=== PATIENT | female | born 2000 | race Caucasian/White ===

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

== ENCOUNTER 2021-05-26 10:23 | Emergency (ER) | payer OTHER, SELFPAY ==
[2021-05-26 11:25] VITALS: BP 132/81; PULSE 112; RESP 20; TEMP 37.2; O2SAT 99; BMI 23.4
--- NOTE | 2021-05-26 11:59 | HMH.EDUTC ---
[facility] [place] Disposition Clinical Impression: COVID-19 Sinusitis Qualifiers: Sinusitis location: unspecified location Chronicity: acute Recurrence: non-recurrent Qualified Code(s): J01.90 - Acute sinusitis, unspecified Disposition: Home, Self-Care Condition on Discharge: Good Instructions: DI for Sinusitis, Preventing the Spread of Coronavirus Discharge Instructions Additional Instructions: Drink plenty of fluids. Take tylenol or ibuprofen for pain or fever. Take the medications as directed. Follow up with your regular doctor. GO TO THE ER FOR ANY WORSENING SYMPTOMS Prescriptions: Brompheniramine/Pseudoephed/Dm [Bromfed Dm Cough Syrup] 5 ml PO Q6HP PRN #240 ml PRN Reason: Cough Transmission Status: Received by [facility] methylPREDNISolone [Medrol] 4 mg PO DIRECTED 6 Days #21 packet Transmission Status: Received by [facility] Azithromycin [Z-Paul 250mg Tab*] 250 mg PO UD DOSE PK #6 tab Transmission Status: Received by [facility] Referrals: Israel Woo MD [Primary Care Provider] - Forms: Work/School Release Time of Disposition: 13:15 Medical Decision Making - Medical Records Medical records reviewed: No: I reviewed the patient's medical records. - Pablo Inquiry Pt receiving controlled substance: No Vital Signs: 05/26/21 11:25 05/26/21 13:15 Temperature 98.9 F 98.9 F Temperature Source Oral Pulse Rate 112 H Pulse Rate [Right Brachial] 112 H Respiratory Rate 20 20 Blood Pressure 132/81 Blood Pressure [Right Arm] 132/81 Blood Pressure Mean [Right Arm] 98 Blood Pressure Source [Right Arm] Automatic Cuff Blood Pressure Position [Right Arm] Sitting 02 Sat by Pulse Oximetry 99 Oxygen Delivery Method Room Air - Lab Data Lab results reviewed: Yes: I reviewed the patient's lab results. Lab Results 05/26/21 12:04: SARS-CoV-2 (PCR) Detected A, Influenza A Untype (PCR) Not detected, Influenza Type B (PCR) Not detected [facility] [place] HPI - General Stated complaint: Congestion Time Seen by Provider: 05/26/21 11:59 Mode of Arrival: Ambulatory Source of Information: Patient Limitations: No Limitations Description of Symptoms (Recalled from Triage Doc. by RN): PATIENT C/O CONGESTION, HEADACHE, SNEEZING, AND COUGH. DENIES ANY COVID EXPOSURE HEENT Symptoms (Recalled from RN notes): Yes Resp Symptoms (Recalled from RN notes): Yes Skin Symptoms (Recalled from RN notes): No MS Symptoms (Recalled from RN notes): No Functional Status (Recalled from RN notes): WNL - History of Present Illness Provider Complaint: She c/o sinus pressure, sinus congestion, sinus headache, bilateral ear pain for the past 2 days. She denies any known covid exposure, but she does work here in ER registration. - Related Data Previous Rx's Medication Instructions Recorded Azithromycin [Z-Paul 250mg Tab*] 250 mg PO UD DOSE PK #6 tab 05/26/21 Brompheniramine/Pseudoephed/Dm 5 ml PO Q6HP PRN #240 ml 05/26/21 [Bromfed Dm Cough Syrup] methylPREDNISolone [Medrol] 4 mg PO DIRECTED 6 Days #21 05/26/21 packet Allergies Allergy/AdvReac Type Severity Reaction Status Date / Time No Known Allergies Allergy Verified 05/26/21 11:41 - Worker's Comp Is this a Worker's Comp case?: No [facility] History - Hepatitis A Screen Drug use history?: No High risk sexual behaviors?: No History of sexually transmitted infection?: No Currently employed?: No Childcare worker?: No Do you have indoor plumbing?: Yes Do you have electricity?: Yes Attestation statement:: This patient has been screened for Hepatitis A risk factors. I have reviewed the patient's past medical history: Yes ROS Obtained: Yes All systems reviewed & no additional complaints - Constitutional Constitutional: Reports chills, Denies fever(s), Reports poor appetite, Reports malaise - Eyes Eyes: Denies eye discharge - ENT Ears, Nose, Mouth, and Throat: Reports as per HPI - Cardiovascular Cardiovascu
[2021-05-26 12:55] LABS: Influenza A, PCR Not Detected (NotDetected); Influenza B, PCR Not Detected (NotDetected)
[2021-05-26 13:15] VITALS: BP 132/81; PULSE 112; RESP 20; TEMP 37.2; O2SAT 99
[2021-05-26 13:40] LABS: Coronavirus 19, PCR Detected (NotDetected)
--- NOTE | 2021-05-26 14:07 | PC.NURSE ---
PATIENT NOTIFIED OF POSITIVE COVID RESULT AT THIS TIME
== END 2021-05-26 13:19 | disposition home or self-care (01) ==
PROVIDERS: Emergency Provider Nurse Practitioner Family; PCP Family Medicine
DX: U07.1 COVID-19 (principal); J01.90 Acute sinusitis, unspecified
CPT/HCPCS: 99202; C9803; G0463; U0003; U0005

== ENCOUNTER 2021-11-04 09:01 | Emergency (ER) | payer OTHER, SELFPAY ==
[2021-11-04 09:05] VITALS: BP 126/90; PULSE 86; RESP 18; TEMP 36.9; O2SAT 99; BMI 26.0
--- NOTE | 2021-11-04 09:31 | HMH.EDUTC ---
[facility] [place] Disposition Clinical Impression: Sinusitis Qualifiers: Sinusitis location: unspecified location Chronicity: unspecified Qualified Code(s): J32.9 - Chronic sinusitis, unspecified Disposition: Home, Self-Care Condition on Discharge: Good Instructions: Sinusitis, DI for Sinusitis Additional Instructions: *Monitor Temp, Over the counter Motrin or Tylenol as directed/as needed Tylenol every 4 hours and Motrin every 6 hours (as long as your family doctor has told you that you can take it) for fever or pain. and straight to ER if unable to lower temp less than 101.0 after medication given *Warm salt water gargles may help to soothe the throat *Throat Lozenges *Warm fluids like tea with honey may help to soothe the throat *Sleep elevated *Humidifier/Vaporizer *Take medication as prescribed Return if needed Follow up IMMEDIATELY for new or worsening symptoms or no Noticeable improvement over the next 48-72 hours. 911 for difficulty breathing or swallowing Prescriptions: methylPREDNISolone [Medrol 4mg tab] 4 mg PO DIRECTED #21 tab Transmission Status: P[facility] to [facility] Azithromycin [Z-Paul 250mg Tab] 250 mg PO DIRECTED #6 tab Transmission Status: Pending to [facility] Referrals: Theresa Arroyo PA [Primary Care Provider] - As needed Time of Disposition: 09:33 Medical Decision Making - Pablo Inquiry Pt receiving controlled substance: No Pablo was queried for this patient: No Vital Signs: 11/04/21 09:05 Temperature 98.4 F Temperature Source Oral Pulse Rate [Right Brachial] 86 Respiratory Rate 18 Blood Pressure [Right Arm] 126/90 Blood Pressure Mean [Right Arm] 102 Blood Pressure Source [Right Arm] Automatic Cuff Blood Pressure Position [Right Arm] Sitting 02 Sat by Pulse Oximetry 99 Oxygen Delivery Method Room Air [facility] [place] HPI - General Stated complaint: possible sinus infection bilateral ear pain Time Seen by Provider: 11/04/21 09:31 Mode of Arrival: Ambulatory Source of Information: Patient Limitations: No Limitations Description of Symptoms (Recalled from Triage Doc. by RN): PATIENT C/O SORE THROAT, COUGH, RUNNY NOSE, HEADACHE, CONGESTION, AND BILATERAL EAR PAIN SINCE YESTERDAY HEENT Symptoms (Recalled from RN notes): Yes Resp Symptoms (Recalled from RN notes): Yes Skin Symptoms (Recalled from RN notes): No MS Symptoms (Recalled from RN notes): No Functional Status (Recalled from RN notes): WNL - History of Present Illness Provider Complaint: Patient states that she has been having sinus issues States that she has been having sinus pressure and congestion States that yesterday she started having sore throat, headache, pain and pressure in both ears State that today she was still feeling the pressure behind her eyes so she came in States that she thinks she has a sinus infection again - Related Data Previous Rx's Medication Instructions Recorded Azithromycin [Z-Paul 250mg Tab] 250 mg PO DIRECTED #6 tab 11/04/21 methylPREDNISolone [Medrol 4mg 4 mg PO DIRECTED #21 tab 11/04/21 tab] Allergies Allergy/AdvReac Type Severity Reaction Status Date / Time No Known Allergies Allergy Verified 05/26/21 11:41 - Worker's Comp Is this a Worker's Comp case?: No [facility] History - Hepatitis A Screen Drug use history?: No High risk sexual behaviors?: No History of sexually transmitted infection?: No Currently employed?: No Childcare worker?: No Do you have indoor plumbing?: Yes Do you have electricity?: Yes Attestation statement:: This patient has been screened for Hepatitis A risk factors. I have reviewed the patient's past medical history: Yes Laterality Cases: Bilateral: Tonsillectomy - Social History Alcohol Intake: never Occupational Status: other ROS Obtained: Yes All systems reviewed & no additional complaints, Yes Systems reviewed as appropriate & no additional complaints - Constitutional Constitutional: Reports system reviewed and n
[2021-11-04 09:35] VITALS: BP 126/90; PULSE 86; RESP 18; TEMP 36.9; O2SAT 99
== END 2021-11-04 09:41 | disposition home or self-care (01) ==
PROVIDERS: Emergency Provider Nurse Practitioner; PCP Physician Assistant
DX: J32.9 Chronic sinusitis, unspecified (principal)
CPT/HCPCS: 99212; G0463

== ENCOUNTER 2022-03-01 08:00 | Emergency (ER) | payer BC, SELFPAY ==
[2022-03-01 08:19] VITALS: BP 123/74; PULSE 92; RESP 16; TEMP 36.9; O2SAT 96; BMI 25.4
--- NOTE | 2022-03-01 08:21 | HMH.EDUTC ---
[facility] [place] Clinical Impression: Viral syndrome Otitis media Qualifiers: Otitis media type: suppurative Chronicity: acute Laterality: bilateral Recurrence: non-recurrent Spontaneous tympanic membrane rupture: without spontaneous rupture Qualified Code(s): H66.003 - Acute suppurative otitis media without spontaneous rupture of ear drum, bilateral Disposition: Home, Self-Care Condition on Discharge: Good Instructions: Middle Ear Infection, DI for Viral Syndrome, Preventing the Spread of Coronavirus Discharge Instructions Additional Instructions: Drink plenty of fluids. Take tylenol or ibuprofen for pain or fever. Take the medications as directed. Follow up with your regular doctor. GO TO THE ER FOR ANY WORSENING SYMPTOMS Quarantine until you know the results of your covid-19 test. Notify your school or workplace of your results and follow their instructions regarding return to work/school. Prescriptions: Brompheniramine/Pseudoephed/Dm [Bromfed Dm Cough Syrup] 5 ml PO Q6HP PRN #240 ml PRN Reason: Cough Transmission Status: Received by [facility] methylPREDNISolone [Medrol] 4 mg PO DIRECTED 6 Days #21 packet Transmission Status: Received by [facility] Azithromycin [Z-Paul 250mg Tab*] 250 mg PO UD DOSE PK #6 tab Transmission Status: Received by [facility] Referrals: Theresa Arroyo PA [Primary Care Provider] - Forms: Work/School Release Time of Disposition: 08:32 Medical Decision Making - Medical Records Medical records reviewed: No: I reviewed the patient's medical records. - Pablo Inquiry Pt receiving controlled substance: No Vital Signs: 03/01/22 08:19 03/01/22 08:42 Temperature 98.5 F 98.5 F Temperature Source Oral Pulse Rate 92 H Pulse Rate [Left] 92 H Respiratory Rate 16 16 Blood Pressure 123/74 Blood Pressure [Right Arm] 123/74 Blood Pressure Mean [Right Arm] 90 02 Sat by Pulse Oximetry 96 - Lab Data Lab Results 03/01/22 08:31: Chlamy pneumoniae PCR Not detected, Adenovirus (PCR) Not detected, B. pertussis DNA (PCR) Not detected, Coronavirus OC43 (PCR) Not detected, Coronavirus HKU1 (PCR) Not detected, Coronavirus 229E (PCR) Not detected, SARS-CoV-2 (PCR) Not detected, Coronavirus NL63 (PCR) Not detected, Human Metapneumovir PCR Not detected, Influenza A (H1) PCR Not detected, Influ A (H1N1/09) PCR Not detected, Influenza A (H3) PCR Not detected, Influenza Type A (PCR) Not detected, Influenza Type B (PCR) Not detected, M. pneumoniae (PCR) Not detected, Parainfluenza 1 (PCR) Not detected, Parainfluenza 2 (PCR) Not detected, Parainfluenza 3 (PCR) Not detected, Parainfluenza 4 (PCR) Not detected, RSV (PCR) Not detected, Entero/Rhino (PCR) Not detected [facility] [place] - General Stated complaint: ear pain Time Seen by Provider: 03/01/22 08:26 - History of Present Illness Provider Complaint: She states that for the past 2 days she has had bilateral ear pain and pressure, sinus congestion, and a scratchy throat. She denies fever and chills, but she states that in the past she had covid-19 once and it started with the symptoms she is having now. - Related Data Home Medications Medication Instructions Recorded Confirmed sodium fluoride 1.1 %-potassium 1 applic PO ml 01/11/22 01/11/22 nitrate 5 % dental paste Previous Rx's Medication Instructions Recorded Azithromycin [Z-Paul 250mg Tab*] 250 mg PO UD DOSE PK #6 tab 03/01/22 Brompheniramine/Pseudoephed/Dm 5 ml PO Q6HP PRN #240 ml 03/01/22 [Bromfed Dm Cough Syrup] methylPREDNISolone [Medrol] 4 mg PO DIRECTED 6 Days #21 03/01/22 packet Allergies Allergy/AdvReac Type Severity Reaction Status Date / Time ethinyl estradiol Allergy Severe Vomiting Verified 03/01/22 08:27 [From Lo Loestrin Fe] ferrous fumarate Allergy Severe Vomiting Verified 03/01/22 08:27 [From Lo Loestrin Fe] norethindrone acetate Allergy Severe Vomiting Verified 03/01/22 08:27 [Fro
[2022-03-01 08:40] LABS: Adenovirus,PCR Not Detected (NotDetected); Bordetella Pertussis Not Detected (NotDetected); Chlamydophila Pneumoniae, PCR Not Detected (NotDetected); Coronavirus 19, PCR Not Detected (NotDetected); Coronavirus 229E Not Detected (NotDetected); Coronavirus NL63 Not Detected (NotDetected); Coronavirus OC43 Not Detected (NotDetected); Coronovirus HKU1,PCR Not Detected (NotDetected); Human Metapneumovirus Not Detected (NotDetected); Influenza A, PCR Not Detected (NotDetected); Influenza AH1, 2009 Not Detected (NotDetected); Influenza AH1, PCR Not Detected (NotDetected); Influenza AH3,PCR Not Detected (NotDetected); Influenza B, PCR Not Detected (NotDetected); Mycoplasma Pneumoniae, PCR Not Detected (NotDetected); Parainfluenza 1, PCR Not Detected (NotDetected); Parainfluenza 2, PCR Not Detected (NotDetected); Parainfluenza 3, PCR Not Detected (NotDetected); Parainfluenza 4, PCR Not Detected (NotDetected); Respiratory Syncytial Virus Not Detected (NotDetected); Rhinovirus/Enterovirus Not Detected (NotDetected)
[2022-03-01 08:42] VITALS: BP 123/74; PULSE 92; RESP 16; TEMP 36.9
== END 2022-03-01 08:42 | disposition home or self-care (01) ==
PROVIDERS: Emergency Provider Nurse Practitioner Family; PCP Physician Assistant
DX: H66.003 Acute suppurative otitis media without spontaneous rupture of ear drum, bilateral (principal); B34.9 Viral infection, unspecified; J02.9 Acute pharyngitis, unspecified
CPT/HCPCS: 87581; 87632; 87798; 99212; C9803; G0463; U0003; U0005

== ENCOUNTER 2022-04-24 08:02 | Emergency (ER) | payer BC, SELFPAY ==
[2022-04-24 08:10] VITALS: BP 131/94; PULSE 91; RESP 18; TEMP 37; O2SAT 98; BMI 22.1
--- NOTE | 2022-04-24 08:28 | EXP.UTC ---
Discharge Plan Disposition Patient Disposition: Home, Self-Care Condition: Good Prescriptions Prescriptions: New azithromycin [Zithromax Z-Paul] 250 mg tablet 250 mg PO DAILY 6 Days Qty: 6 0RF Rx Instructions: start on day 2 of therapy methylprednisolone [Medrol (Paul)] 4 mg tablets,dose pack 4 mg PO DAILY Qty: 21 0RF No Action [employer] 3 mg- 14.2 mg (28) tablet 1 tab PO DAILY Qty: 28 12RF sodium fluoride-pot nitrate [PreviDent 5000 Enamel Protect] 1.1-5 % paste 1 applic PO Label Comments: USE a pea-sized AMOUNT TO BRUSH DIRECTED TWICE DAILY Referrals Follow up/Referrals: Theresa Arroyo PA [Primary Care Provider] - See instructions Activity Restrictions/Add. Instructions Additional Instructions/Restrictions: *Monitor Temp, Over the counter Motrin or Tylenol as directed/as needed Tylenol every 4 hours and Motrin every 6 hours (as long as your family doctor has told you that you can take it) for fever or pain. and straight to ER if unable to lower temp less than 101.0 after medication given *Warm salt water gargles may help to soothe the throat *Throat Lozenges? *Warm fluids like tea with honey may help to soothe the throat? *Sleep elevated *Humidifier/Vaporizer Follow up IMMEDIATELY for new or worsening symptoms or no Noticeable improvement over the next 48-72 hours. 911 for difficulty breathing or swallowing You were tested for today for COVID19 your test result should be back in the next 24-48 hours, you may may check your results on the [facility] My Health Portal Make sure to take your Vitamins Vit. C Vit D and Zinc if you can take them Clinical Impressions Clinical Impression: Upper respiratory infection Stand Alone Forms Stand Alone Forms: Work/School Release Instructions Patient Instructions: Sore Throat, Sinusitis, DI for Sinusitis Discharge ED Provider: Mary Jo Plunkett [facility] [place] HPI General Stated complaint: Bodyaches, sore throat, ear pain, congestion Mode of Arrival: Ambulatory Source of Information: Patient Limitations: No Limitations Time Seen by Provider: 04/24/22 08:15 Description of Symptoms (Recalled from Triage Doc. 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 States that she hasnt had fever that she is aware of but thinks she may have had one last night Related Data Home Medications Medication Instructions Recorded Confirmed sodium fluoride 1.1 %-potassium 1 applic PO 01/11/22 03/08/22 nitrate 5 % dental paste (PreviDent 5000 Enamel Protect) Previous Rx's Medication Instructions Recorded drospirenone 3 mg-estetrol 14.2 mg 1 tab PO DAILY #28 tabs 03/08/22 (28) tablet (Nextstellis) azithromycin 250 mg tablet 250 mg PO DAILY 6 days #6 tabs 04/24/22 (Zithromax Z-Paul) methylprednisolone 4 mg tablets in 4 mg PO DAILY #21 tabs 04/24/22 a dose pack (Medrol (Paul)) Allergies Allergy/AdvReac Type Severity Reaction Status Date / Time ethinyl estradiol Allergy Severe Vomiting Verified 03/08/22 15:18 [From Lo Loestrin Fe] ferrous fumarate Allergy Severe Vomiting Verified 03/08/22 15:18 [From Lo Loestrin Fe] norethindrone acetate Allergy Severe Vomiting Verified 03/08/22 15:18 [From Lo Loestrin Fe] Worker's Comp Is this a Worker's Comp case?: No PFSH PFSH Social History (Updated 04/24/22 @ 08:28 by Chelsea Ibrahim RN) Smoking Status:
[2022-04-24 08:40] VITALS: BP 131/94; PULSE 91; RESP 18; TEMP 37; O2SAT 98
[2022-04-24 08:52] LABS: UTC Strep Screen (Rapid) Negative (Negative)
[2022-04-24 09:09] LABS: Coronavirus 19, PCR Not Detected (NotDetected); Influenza A, PCR Not Detected (NotDetected); Influenza B, PCR Not Detected (NotDetected)
== END 2022-04-24 08:48 | disposition home or self-care (01) ==
PROVIDERS: Emergency Provider Nurse Practitioner; PCP Physician Assistant
DX: J06.9 Acute upper respiratory infection, unspecified (principal)
CPT/HCPCS: 87880; 99212; C9803; G0463; U0003; U0005

== ENCOUNTER 2022-05-17 08:39 | Emergency (ER) | payer BC, SELFPAY ==
[2022-05-17 08:50] VITALS: BP 119/82; PULSE 69; RESP 19; TEMP 37.1; O2SAT 99; BMI 22.1
--- NOTE | 2022-05-17 09:01 | EXP.UTC ---
Discharge Plan Disposition Patient Disposition: Home, Self-Care Condition: Good Prescriptions Prescriptions: New methylprednisolone [Medrol (Paul)] 4 mg tablets,dose pack 4 mg PO DAILY Qty: 21 0RF cefdinir 300 mg capsule 300 mg PO BID Qty: 20 0RF Referrals Follow up/Referrals: Provider,Referral, MD [Primary Care Provider] - See instructions Activity Restrictions/Add. Instructions Additional Instructions/Restrictions: *Monitor Temp, Over the counter Motrin or Tylenol as directed/as needed Tylenol every 4 hours and Motrin every 6 hours (as long as your family doctor has told you that you can take it) for fever or pain. and straight to ER if unable to lower temp less than 101.0 after medication given *Warm salt water gargles may help to soothe the throat *Throat Lozenges? *Warm fluids like tea with honey may help to soothe the throat? *Sleep elevated *Humidifier/Vaporizer Your throat swab was sent for culture. Those results are typically sent to your primary care. Be sure to follow up in 2-3 days with your family doctor/primary care physician if no improvement so they can review those result and treat if necessary. If you don?t have a primary care doctor, I recommend you get one but in the mean time, you will have to return to a walk in clinic Follow up IMMEDIATELY for new or worsening symptoms or no Noticeable improvement over the next 48-72 hours. 911 for difficulty breathing or swallowing You were tested for today for COVID19 your test result should be back in the next 24-48 hours, you may check your results on the [facility] My Health Portal Make sure to take your Vitamins Vit. C Vit D and Zinc if you can take them Clinical Impressions Clinical Impression: Upper respiratory infection Stand Alone Forms Stand Alone Forms: Work/School Release Instructions Patient Instructions: Sore Throat, DI for Ear Pain-Adult Discharge ED Provider: Mary Jo Plunkett [facility] [place] [place] HPI General Stated complaint: cough, sore throat, ear pain, congestion Time Seen by Provider: 05/17/22 09:02 History of Present Illness Provider Complaint: Patient states she started on Sunday with sore throat, sinus congestion and pressure, and pain in both ears States that it has continued to get worse so today when she was still feeling bad she came in to get checked out Related Data Previous Rx's Medication Instructions Recorded cefdinir 300 mg capsule 300 mg PO BID #20 caps 05/17/22 methylprednisolone 4 mg tablets in 4 mg PO DAILY #21 tabs 05/17/22 a dose pack (Medrol (Paul)) Allergies Allergy/AdvReac Type Severity Reaction Status Date / Time ethinyl estradiol Allergy Severe Vomiting Verified 03/08/22 15:18 [From Lo Loestrin Fe] ferrous fumarate Allergy Severe Vomiting Verified 03/08/22 15:18 [From Lo Loestrin Fe] norethindrone acetate Allergy Severe Vomiting Verified 03/08/22 15:18 [From Lo Loestrin Fe] PFSH PFS Surgical History (Updated 05/17/22 @ 09:02 by Chelsea Ibarhim RN) History of tonsillectomy Social History (Updated 04/24/22 @ 08:28 by Chelsea Ibrahim RN) Smoking Status: Never smoker alcohol intake: never current occupational status: other Travel in the last 8 weeks: None ROS Obtained: Yes All systems reviewed & no additional complaints except as documented and Yes Systems reviewed as appropriate & no additional complaints except as documented Constitutional Constitutional: Reports system reviewed and no additional complaints, except as documented, Reports as per HPI and Reports headache(s) ENT Ears, Nose, Mouth, and Throat: Reports system reviewed and no additional complaints, except as documented, Reports as per HPI, Reports otalgia, Reports headache(s), Reports sinus pain, Reports sinus pressure and Reports sore throat Cardiovascular Cardiovascular: Reports system reviewed and no additional complaints, except as documented and Reports as per HPI Respiratory Respir
[2022-05-17 09:04] VITALS: BP 119/82; PULSE 69; RESP 19; TEMP 37.1; O2SAT 99
[2022-05-17 09:19] LABS: UTC Strep Screen (Rapid) Negative (Negative)
== END 2022-05-17 09:23 | disposition home or self-care (01) ==
PROVIDERS: Emergency Provider Nurse Practitioner
DX: J02.9 Acute pharyngitis, unspecified (principal); R05.9 Cough, unspecified; R09.81 Nasal congestion
CPT/HCPCS: 87880; 99212; G0463

== ENCOUNTER 2022-12-07 13:28 | Emergency (ER) | payer BC, SELFPAY ==
[2022-12-07 13:29] VITALS: BP 140/87; PULSE 102; RESP 20; TEMP 37.1; O2SAT 97; BMI 28.5
--- NOTE | 2022-12-07 13:51 | EXP.UTC ---
Discharge Plan Disposition Patient Disposition: Home, Self-Care Condition: Good Prescriptions Prescriptions: New amoxicillin [amoxicillin] 500 mg tablet 500 mg PO TID 10 Days Qty: 30 0RF [id number] [Bromfed DM] 2-30-10 mg/5 mL Syrup 5 ml PO Q6H PRN (Reason: Cough) Qty: 240 0RF Referrals Follow up/Referrals: Theresa Arroyo PA [Primary Care Provider] - See instructions Activity Restrictions/Add. Instructions Additional Instructions/Restrictions: Drink plenty of fluids. Take tylenol or ibuprofen for pain or fever. Take the medications as directed. Follow up with your regular doctor. GO TO THE ER FOR ANY WORSENING SYMPTOMS Clinical Impressions Clinical Impression: Pharyngitis Instructions Patient Instructions: Sore Throat, DI for Pharyngitis/Tonsillopharyngitis -- Adult Discharge ED Provider: Sergio Frausto [facility] [place] HPI General Stated complaint: Ear pain, sore throat Time Seen by Provider: 12/07/22 13:50 History of Present Illness Provider Complaint: She c/o sore throat, chills, and malaise for the past 2 days. Related Data Previous Rx's Medication Instructions Recorded amoxicillin 500 mg tablet 500 mg PO TID 10 days #30 tabs 12/07/22 [id number] 5 ml PO Q6H PRN Cough #240 mL 12/07/22 2 mg-30 mg-10 mg/5 mL oral syrup (Bromfed DM) Allergies Allergy/AdvReac Type Severity Reaction Status Date / Time ethinyl estradiol Allergy Severe Vomiting Verified 12/07/22 13:53 [From Lo Loestrin Fe] ferrous fumarate Allergy Severe Vomiting Verified 12/07/22 13:53 [From Lo Loestrin Fe] norethindrone acetate Allergy Severe Vomiting Verified 12/07/22 13:53 [From Lo Loestrin Fe] [facility] Disclaimer: The information contained in this section may have been updated after the patient was seen, as this information can be updated by other users. Surgical History History of tonsillectomy Social History Smoking Status: Never smoker alcohol intake: never current occupational status: other Travel in the last 8 weeks: None ROS Obtained: Yes All systems reviewed & no additional complaints except as documented Constitutional Constitutional: Reports chills and Reports fever(s) Eyes Eyes: Denies eye discharge ENT Ears, Nose, Mouth, and Throat: Reports as per HPI Cardiovascular Cardiovascular: Denies chest pain Respiratory Respiratory: Denies chest congestion and Reports cough Gastrointestinal Gastrointestingal: Reports nausea; Denies abdominal pain, constipation, cramping, diarrhea or vomiting Musculoskeletal Musculoskeletal: Denies arthralgias Integumentary/Breasts Skin/Breast: Denies rash Neurologic Neurologic: Denies paresthesias Physical Exam General General appearance: alert and in no apparent distress Head Head exam: atraumatic, normocephalic and normal inspection Eye Eye exam: Present normal appearance, PERRL and EOMI ENT ENT exam: Present mucous membranes moist and normal external ear exam Expanded ENT Exam TM/Canal exam: Bilateral TM: erythema and bulging Nose exam: Absent sinus tenderness Mouth exam: Present normal external inspection; Absent drooling Teeth exam: Present normal inspection Throat exam: Present tonsillar erythema, tonsillomegaly and tonsillar exudate Neck Neck exam: Present normal inspection, full ROM and trachea midline; Absent tenderness, meningismus or lymphadenopathy Chest Chest inspection: Present normal inspection and symmetric chest wall rise; Absent tenderness Respiratory Respiratory exam: Present normal lung sounds bilaterally; Absent respiratory distress, wheezes or stridor Cardiovascular Cardiovascular exam: Present regular rate and normal rhythm; Absent systolic murmur or diastolic murmur Abdominal Exam Abdominal exam: Present soft and normal bowel sounds; Absent distention, tenderness, g
[2022-12-07 13:54] LABS: UTC Strep Screen (Rapid) Negative (Negative)
[2022-12-07 14:23] VITALS: BP 140/87; PULSE 102; RESP 20; TEMP 37.1; O2SAT 97
== END 2022-12-07 14:23 | disposition home or self-care (01) ==
PROVIDERS: Emergency Provider Nurse Practitioner Family; PCP Physician Assistant
DX: J02.9 Acute pharyngitis, unspecified (principal)
CPT/HCPCS: 87880; 99212; 99214; G0463

== ENCOUNTER → 2023-02-28 07:43 | Outpatient (CLI) | payer BC, SELFPAY ==
--- NOTE | 2023-02-28 07:46 | US_ITS ---
FINAL REPORT CLINICAL HISTORY: RUQ PAIN COMPARISON: None FINDINGS: Sonographic images of the right upper quadrant were obtained. The pancreas is partially obscured. There is mild fatty infiltration of the liver present. The gallbladder appears normal without evidence of gallstones.There is no evidence of biliary ductal dilatation.The common duct measures 3 mm. Limited images of the right kidney are unremarkable. IMPRESSION: Mild fatty infiltration of the liver. Otherwise unremarkable upper abdominal ultrasound. Reviewed, Interpreted and Dictated by Tha Zuñiga III, MD Transcribed by Zo Gunderson Authenticated and [facility]
== END ==
PROVIDERS: PCP Physician Assistant; Visit Provider Physician Assistant
DX: R10.11 Right upper quadrant pain (principal)
CPT/HCPCS: 76705

== ENCOUNTER → 2023-03-12 09:23 | Outpatient (CLI) | payer BC, SELFPAY ==
--- NOTE | 2023-03-12 09:32 | NM_ITS ---
FINAL REPORT CLINICAL HISTORY: RUQ PAIN, NO GALLSTONES SEEN ON U/S COMPARISON: None FINDINGS: Sequential anterior projection images of the abdomen were obtained after the intravenous injection of 8.86 mCi technetium 99m Choletec. There is normal uptake of radiotracer by the liver. The bile ducts are visualized by 10 minutes. Gallbladder activity is seen by 10 minutes. Bowel activity is noted by 20 minutes. After 1 hour, 1.3 ?g of CCK was injected intravenously for calculation of gallbladder ejection fraction. The gallbladder ejection fraction is 95%, which is within normal limits. IMPRESSION: No evidence of cystic duct or bile duct obstruction. Normal gallbladder ejection fraction of 95%. Reviewed, Interpreted and Dictated by Dana Dawson MD Transcribed by Isidra iFnn Authenticated and [facility]
== END ==
PROVIDERS: PCP Physician Assistant; Visit Provider Physician Assistant
DX: R10.11 Right upper quadrant pain (principal)
CPT/HCPCS: 78227; A9537; J2805

== ENCOUNTER 2023-03-26 08:26 | Emergency (ER) | payer BC, SELFPAY ==
[2023-03-26 08:30] VITALS: BP 132/87; PULSE 93; RESP 20; TEMP 36.8; O2SAT 98; BMI 22.3
[2023-03-26 08:33] VITALS: BP 132/87; PULSE 93; RESP 18; TEMP 36.8; O2SAT 98
== END 2023-03-26 08:35 | disposition home or self-care (01) ==
LOC: UTC 08:27
PROVIDERS: Emergency Provider Nurse Practitioner; PCP Physician Assistant
DX: Z48.02 Encounter for removal of sutures (principal)

== ENCOUNTER 2023-06-15 08:05 | Emergency (ER) | payer BC, SELFPAY ==
[2023-06-15 08:10] VITALS: BP 125/88; PULSE 93; RESP 18; TEMP 37.2; O2SAT 98; BMI 28.5
[2023-06-15 08:29] LABS: UTC Strep Screen (Rapid) Negative (Negative)
--- NOTE | 2023-06-15 08:31 | EXP.UTC ---
Discharge Plan Disposition Patient Disposition: Home, Self-Care Condition: Good Prescriptions Prescriptions: New prednisone 10 mg tablet 10 mg PO BID 4 Days Qty: 8 0RF azithromycin [Zithromax] 250 mg tablet 250 mg PO UD DOSE PK Qty: 6 0RF Rx Instructions: Take two (2) tablets today, then one (1) tablet days #2 thru #5 alggyxpnpzybagz-hyvqvpomf-QY [Bromfed DM] 2-30-10 mg/5 mL Syrup 5 ml PO Q6H PRN (Reason: Cough) Qty: 240 0RF ondansetron 4 mg Tablet,Disintegrating 4 mg PO Q8H PRN (Reason: Nausea) Qty: 12 0RF Referrals Follow up/Referrals: Theresa Arroyo PA [Primary Care Provider] - See instructions Activity Restrictions/Add. Instructions Additional Instructions/Restrictions: Drink plenty of fluids. Take tylenol or ibuprofen for pain or fever. Take the medications as directed. Follow up with your regular doctor. GO TO THE ER FOR ANY WORSENING SYMPTOMS Clinical Impressions Clinical Impression: Pharyngitis, Viral syndrome Stand Alone Forms Stand Alone Forms: Work/School Release Instructions Patient Instructions: Strep Throat, DI for Strep Throat Discharge ED Provider: Sergio Frausto [facility] General Stated complaint: ear pain,sore throat,congestion,nausea Mode of Arrival: Ambulatory Source of Information: Patient Limitations: No Limitations Time Seen by Provider: 06/15/23 08:31 Description of Symptoms (Recalled from Triage Doc. by RN): congestion, sore throat, bilateral ear pain, and upset stomach HEENT Symptoms (Recalled from RN notes): Yes Resp Symptoms (Recalled from RN notes): No Skin Symptoms (Recalled from RN notes): No MS Symptoms (Recalled from RN notes): No Functional Status (Recalled from RN notes): n/a History of Present Illness Provider Complaint: She states that for the past 2 days she has had sore throat, chills, low grade fever, cough, and n/v. Related Data Previous Rx's Medication Instructions Recorded azithromycin 250 mg tablet 250 mg PO UD DOSE PK #6 tabs 06/15/23 (Zithromax) whnjhvhzfyhosvm-fqibzfegulmpcqd-PI 5 ml PO Q6H PRN Cough #240 mL 06/15/23 2 mg-30 mg-10 mg/5 mL oral syrup (Bromfed DM) ondansetron 4 mg disintegrating 4 mg PO Q8H PRN Nausea #12 tabs 06/15/23 tablet prednisone 10 mg tablet 10 mg PO BID 4 days #8 tabs 06/15/23 Allergies Allergy/AdvReac Type Severity Reaction Status Date / Time ethinyl estradiol Allergy Severe Vomiting Verified 06/15/23 08:24 [From Lo Loestrin Fe] ferrous fumarate Allergy Severe Vomiting Verified 06/15/23 08:24 [From Lo Loestrin Fe] norethindrone acetate Allergy Severe Vomiting Verified 06/15/23 08:24 [From Lo Loestrin Fe] Worker's Comp Is this a Worker's Comp case?: No [facility] Disclaimer: The information contained in this section may have been updated after the patient was seen, as this information can be updated by other users. Surgical History History of tonsillectomy Social History Smoking Status: Never smoker alcohol intake: never current occupational status: other Travel in the last 8 weeks: None ROS Obtained: Yes All systems reviewed & no additional complaints except as documented Constitutional Constitutional: Reports chills and Denies fever(s) Eyes Eyes: Denies eye discharge ENT Ears, Nose, Mouth, and Throat: Reports as per HPI Cardiovascular Cardiovascular: Denies chest pain Respiratory Respiratory: Denies chest congestion and Reports cough Gastrointestinal Gastrointestingal: Reports nausea; Denies abdominal pain, constipation, cramping, diarrhea or vomiting Musculoskeletal Musculoskeletal: Denies arthralgias Integumentary/Breasts Skin/Breast: Denies rash Neurologic Neurologic: Denies paresthesias Physical Exam General General appearance: alert and in no apparent distress Eye Eye exam: Present normal appearance, PERRL and EOMI ENT EN
[2023-06-15 08:53] LABS: Coronavirus 19, PCR Not Detected (NotDetected); Influenza A, PCR Not Detected (NotDetected); Influenza B, PCR Not Detected (NotDetected)
[2023-06-15 08:56] VITALS: BP 125/88; PULSE 93; RESP 18; TEMP 37.2; O2SAT 98
== END 2023-06-15 08:56 | disposition home or self-care (01) ==
PROVIDERS: Emergency Provider Nurse Practitioner Family; PCP Physician Assistant
DX: J02.9 Acute pharyngitis, unspecified (principal); B34.9 Viral infection, unspecified; R11.2 Nausea with vomiting, unspecified
CPT/HCPCS: 87636; 87880; 99212; 99214; G0463

== ENCOUNTER 2023-07-20 18:56 | Emergency (ER) | payer BC, SELFPAY ==
[2023-07-20 19:15] VITALS: BP 139/85; PULSE 117; RESP 22; TEMP 36.6; O2SAT 97; BMI 28.5
--- NOTE | 2023-07-20 19:22 | EXP.UTC ---
Discharge Plan Disposition Patient Disposition: Home, Self-Care Condition: Good Prescriptions Prescriptions: New azithromycin [Zithromax] 250 mg tablet 250 mg PO UD DOSE PK Qty: 6 0RF Rx Instructions: Take two (2) tablets today, then one (1) tablet days #2 thru #5 methylprednisolone 4 mg Tablets,Dose Pack 4 mg PO DIRECTED Qty: 21 0RF ddxdcyypthhlsky-zprdlkhcy-PZ [Bromfed DM] 2-30-10 mg/5 mL Syrup 5 ml PO Q6H PRN (Reason: Cough) Qty: 240 0RF Referrals Follow up/Referrals: Theresa Arroyo PA [Primary Care Provider] - See instructions Activity Restrictions/Add. Instructions Additional Instructions/Restrictions: Drink plenty of fluids. Take tylenol or ibuprofen for pain or fever. Take the medications as directed. Follow up with your regular doctor. GO TO THE ER FOR ANY WORSENING SYMPTOMS Don't start the oral steroids until tomorrow, since you had the shot here today. Clinical Impressions Clinical Impression: Sinusitis Instructions Patient Instructions: Sinusitis, DI for Sinusitis Discharge ED Provider: Sergio Frausto [facility] General Stated complaint: head congestion,runny nose Time Seen by Provider: 07/20/23 19:21 History of Present Illness Provider Complaint: She states that for the past 4 days she has had worsening sinus congestion and a cough. She denies any fever/chills/body aches. Related Data Previous Rx's Medication Instructions Recorded azithromycin 250 mg tablet 250 mg PO UD DOSE PK #6 tabs 07/20/23 (Zithromax) mfymorktlxsesee-obibijspmhcnreq-GF 5 ml PO Q6H PRN Cough #240 mL 07/20/23 2 mg-30 mg-10 mg/5 mL oral syrup (Bromfed DM) methylprednisolone 4 mg tablets in 4 mg PO DIRECTED #21 tabs 07/20/23 a dose pack Allergies Allergy/AdvReac Type Severity Reaction Status Date / Time ethinyl estradiol Allergy Severe Vomiting Verified 06/15/23 08:24 [From Lo Loestrin Fe] ferrous fumarate Allergy Severe Vomiting Verified 06/15/23 08:24 [From Lo Loestrin Fe] norethindrone acetate Allergy Severe Vomiting Verified 06/15/23 08:24 [From Lo Loestrin Fe] [facility] Disclaimer: The information contained in this section may have been updated after the patient was seen, as this information can be updated by other users. Surgical History History of tonsillectomy Social History Smoking Status: Never smoker alcohol intake: never current occupational status: other Travel in the last 8 weeks: None ROS Obtained: Yes All systems reviewed & no additional complaints except as documented Constitutional Constitutional: Reports poor appetite Eyes Eyes: Reports system reviewed and no additional complaints, except as documented ENT Ears, Nose, Mouth, and Throat: Reports as per HPI Cardiovascular Cardiovascular: Reports system reviewed and no additional complaints, except as documented and Denies chest pain Respiratory Respiratory: Denies shortness of breath, Denies chest congestion, Reports cough, Denies stridor and Denies wheezing Gastrointestinal Gastrointestingal: Reports system reviewed and no additional complaints, except as documented; Denies abdominal pain, diarrhea or vomiting Musculoskeletal Musculoskeletal: Reports system reviewed and no additional complaints, except as documented and Denies arthralgias Integumentary/Breasts Skin/Breast: Reports system reviewed and no additional complaints, except as documented and Denies rash Neurologic Neurologic: Denies paresthesias Allergic/Immunologic Allergic/Immunologic: Denies wheezing Physical Exam General General appearance: alert and in no apparent distress Eye Eye exam: Present normal appearance, PERRL and EOMI ENT ENT exam: Present mucous membranes moist and normal external ear exam Expanded ENT Exam External ear exam: Present normal external inspection TM/Canal exam: Bilatera
[2023-07-20 19:27] VITALS: BP 139/85; PULSE 117; RESP 22; TEMP 36.6; O2SAT 97
== END 2023-07-20 19:50 | disposition home or self-care (01) ==
PROVIDERS: Emergency Provider Nurse Practitioner Family; PCP Physician Assistant
DX: J01.90 Acute sinusitis, unspecified (principal); R09.81 Nasal congestion; R05.9 Cough, unspecified
CPT/HCPCS: 96372; 99212; 99214; G0463

== ENCOUNTER 2023-11-02 18:45 | Outpatient (CLI) | payer BC, SELFPAY ==
[2023-11-02 23:35] LABS: Hemoglobin 12.7 g/dL (12.2-16.2); Mean Corpuscular HGB Conc 32.6 g/dL (31.8-35.4); Mean Corpuscular Hemoglobin 28.6 pg (27.0-31.2); Mean Corpuscular Volume 87.9 fl (81-99); Platelet Count 273 K/mm3 (142-424); Red Blood Count 4.44 M/mm3 (4.20-5.40); Red Cell Distribution Width 13.2 % (11.5-17.5); White Blood Count 9.1 K/mm3 (4.8-10.8)
[2023-11-02 23:47] LABS: Hemoglobin A1C 5.2 % (4.0-6.0)
[2023-11-03 00:06] LABS: Alanine Aminotransferase 18 U/L (12-78); Albumin Level 4.7 g/dl (3.5-5.0); Alkaline Phosphatase 73 U/L (38-126); Anion Gap 12.7 mEq/L (5-15); Aspartate Amino Transferase 28 U/L (14-36); Bilirubin,Total 0.2 mg/dl (0.2-1.3); Blood Urea Nitrogen 13 mg/dl (7-17); Calcium 9.8 mg/dl (8.4-10.2); Carbon Dioxide 29 mmol/L (22.0-30.0); Chloride 104 mmol/L (98-107); Chol/HDL Ratio 3.6 (1-3.5); Cholesterol 167 mg/dl (140-200); Estimated Glomerular Filt Rate 105 ml/min (>60); GFR (African American) 127 ML/MIN (>60); Globulin 2.4 g/dL (1.3-3.2); Glucose 79 mg/dl (74-100); HDL Cholesterol 46 mg/dl (40-60); Potassium 3.7 mmoL/L (3.5-5.1); Sodium 142 mmol/L (136-145); Total Protein,Serum 7.1 g/dl (6.3-8.2); Triglycerides 97 mg/dl (30-150); VLDL Cholesterol 19 mg/dL (0-40)
[2023-11-03 00:18] LABS: Direct LDL Cholesterol 88.94 mg/dL (100-129)
[2023-11-03 00:23] LABS: 25-OH Vitamin D, Total 30.4 ng/mL (30-100)
[2023-11-03 00:57] LABS: Vitamin B12 751 pg/mL (239-931)
[2023-11-04 10:20] LABS: HIV Screen 4th Generation wRfx Non Reactive (Non Reactive)
[2023-11-04 15:01] LABS: HCV Ab Non Reactive (Non Reactive)
== END 2023-11-02 23:59 ==
LOC: LAB 18:47
PROVIDERS: PCP Nurse Practitioner Family; Visit Provider Nurse Practitioner Family
DX: Z11.4 Encounter for screening for human immunodeficiency virus [HIV] (principal); Z79.899 Other long term (current) drug therapy
CPT/HCPCS: 36415; 80053; 80061; 82306; 82607; 83036; 84443; 85014; 85018; 85048; 85049; 86703; G0432

== ENCOUNTER 2023-11-05 09:56 | Emergency (ER) | payer BC, SELFPAY ==
[2023-11-05 10:40] VITALS: BP 144/84; PULSE 86; RESP 19; TEMP 36.8; O2SAT 100; BMI 29.5
[2023-11-05 10:57] LABS: UTC Strep Screen (Rapid) Negative (Negative)
--- NOTE | 2023-11-05 11:00 | ED_ITS ---
Discharge Plan Disposition Patient Disposition: Home, Self-Care Condition: Good Prescriptions Prescriptions: New azithromycin [Zithromax Z-Paul] 250 mg tablet See Rx Instructions .ROUTE .COMPLEX 5 Days Qty: 6 0RF Rx Instructions: For 250 mg dose pack: take 500 mg today (day 1), then 250 mg for 4 days (days 2-5) Referrals Follow up/Referrals: Marlene Padilla APRN [Primary Care Provider] - See instructions Activity Restrictions/Add. Instructions Additional Instructions/Restrictions: *Monitor Temp, Over the counter Motrin or Tylenol as directed/as needed Tylenol every 4 hours and Motrin every 6 hours (as long as your family doctor has told you that you can take it) for fever or pain. and straight to ER if unable to lower temp less than 101.0 after medication given *Warm salt water gargles may help to soothe the throat *Throat Lozenges? *Warm fluids like tea with honey may help to soothe the throat? *Sleep elevated *Humidifier/Vaporizer Your throat swab was sent for culture. Those results are typically sent to your primary care. Be sure to follow up in 2-3 days with your family doctor/primary care physician if no improvement so they can review those result and treat if necessary. If you don?t have a primary care doctor, I recommend you get one but in the mean time, you will have to return to a walk in clinic Follow up IMMEDIATELY for new or worsening symptoms or no Noticeable improvement over the next 48-72 hours. 911 for difficulty breathing or swallowing Clinical Impressions Clinical Impression: Pharyngitis Instructions Patient Instructions: Sore Throat, DI for Headache Discharge ED Provider: Mary Jo Plunkett [facility] [place] General Stated complaint: sore throat, ear pain, congestion Mode of Arrival: Ambulatory Source of Information: Patient Limitations: No Limitations Time Seen by Provider: 11/05/23 11:00 Description of Symptoms (Recalled from Triage Doc. by RN): PATIENT C/O SORE THROAT, CONGESTION AND EAR PAIN SINCE YESTERDAY HEENT Symptoms (Recalled from RN notes): Yes Resp Symptoms (Recalled from RN notes): No Skin Symptoms (Recalled from RN notes): No MS Symptoms (Recalled from RN notes): No Functional Status (Recalled from RN notes): WNL History of Present Illness Provider Complaint: Patient states that she has been having sore throat, sinus congestion, pressure and feeling achy States that today she was still not feeling any better so she came in to get checked Related Data Previous Rx's Medication Instructions Recorded azithromycin 250 mg tablet See Rx Instructions PO .COMPLEX 5 11/05/23 (Zithromax Z-Paul) days #6 tabs Allergies Allergy/AdvReac Type Severity Reaction Status Date / Time ethinyl estradiol Allergy Severe Vomiting Verified 06/15/23 08:24 [From Lo Loestrin Fe] ferrous fumarate Allergy Severe Vomiting Verified 06/15/23 08:24 [From Lo Loestrin Fe] norethindrone acetate Allergy Severe Vomiting Verified 06/15/23 08:24 [From Lo Loestrin Fe] Worker's Comp Is this a Worker's Comp case?: No [facility] Disclaimer: The information contained in this section may have been updated after the patient was seen, as this information can be updated by other users. Surgical History History of tonsillectomy Social History Smoking Status: Never smoker alcohol intake: never current occupational status: other Travel in the last 8 weeks: None ROS Obtained: Yes All systems reviewed & no additional complaints except as documented and Yes Systems reviewed as appropriate & no additional complaints except as documented Constitutional Constitutional: Reports system reviewed and no additional complaints, except as documented, Reports as per HPI and Reports headache(s) ENT Ears, Nose, Mouth, and Throat: Reports system reviewed and no additional complaints, except as documented, Reports as per HPI, Reports otalgia, Reports headache(s), Reports nasal congestion, Reports nasal discharge and Reports sore throat Cardiovascular Cardiovascular: Reports system reviewed and no additional complaints, except as documented and Reports as per HPI Respiratory Respiratory: Reports system reviewed and no additional complaints, except as documented and Reports as per HPI Gastrointestinal Gastrointestingal: Reports system reviewed and no additional complaints, except as documented and as per HPI Neurologic Neurologic: Reports headache(s) Physical Exam General General appearance: alert and in no apparent distress ENT ENT exam: Present mucous membranes moist Expanded ENT Exam Nose exam: Present sinus tenderness Throat exam: Present other (Pharyngeal erythema noted with PND) Respiratory Respiratory exam: Present normal lung sounds bilaterally; Absent respiratory distress or wheezes Cardiovascular Cardiovascular exam: Present regular rate, normal rhythm and normal heart sounds Abdominal Exam Abdominal exam: Present soft and normal bowel sounds; Absent distention or tenderness Neurological Exam Neurological exam: Present alert, oriented X3 and normal gait Medical Decision Making Pablo Inquiry Pt receiving controlled substance: No Pablo was queried for this patient: No Vital Signs: 11/05/23 10:40 Temperature 98.2 F Temperature Source Oral Pulse Rate [Left Brachial] 86 Respiratory Rate 19 Blood Pressure [Left Arm] 144/84 H Blood Pressure Mean [Left Arm] 104 Blood Pressure Source [Left Arm] Automatic Cuff Blood Pressure Position [Left Arm] Sitting 02 Sat by Pulse Oximetry 100 Oxygen Delivery Method Room Air Lab Data Lab results reviewed: Yes I reviewed the patient's lab results. Lab Results 11/05/23 10:45: Strep Scn Rapid Clinic Negative Orders (Tests/Meds): ORDERS Category Date Time Status Strep Screen Confirmation Stat Micro 11/05/23 10:45 Received
[2023-11-05 11:02] VITALS: BP 144/84; PULSE 86; RESP 19; TEMP 36.8; O2SAT 100
== END 2023-11-05 11:12 | disposition home or self-care (01) ==
PROVIDERS: Emergency Provider Nurse Practitioner; PCP Nurse Practitioner Family
DX: J02.9 Acute pharyngitis, unspecified (principal); R09.81 Nasal congestion; H92.09 Otalgia, unspecified ear
CPT/HCPCS: 87880; 99212; 99214; G0463

== ENCOUNTER 2024-02-27 11:26 | Emergency (ER) | payer BC, SELFPAY ==
[2024-02-27 11:30] VITALS: BP 129/93; PULSE 80; RESP 20; TEMP 37.2; O2SAT 99; BMI 31.1
--- NOTE | 2024-02-27 11:45 | ED_ITS ---
Discharge Plan Disposition Patient Disposition: Home, Self-Care Condition: Good Prescriptions Prescriptions: New azithromycin 250 mg tablet See Rx Instructions .ROUTE .COMPLEX Qty: 6 0RF Rx Instructions: For 250 mg dose pack: take 500 mg today (day 1), then 250 mg for 4 days (days 2-5) guaifenesin 200 mg tablet 200 mg PO Q4H PRN (Reason: cough) Qty: 60 0RF No Action levonorgestrel-ethinyl estrad [Aviane] 0.1-20 mg-mcg tablet 1 tab PO DAILY Qty: 84 4RF Referrals Follow up/Referrals: Marlene Padilla APRN [Primary Care Provider] - See instructions Activity Restrictions/Add. Instructions Additional Instructions/Restrictions: Take medication as prescribed. Increase fluids and rest. If symptoms persist or worsen, return to clinic or go to PCP. Clinical Impressions Clinical Impression: Acute lower respiratory tract infection Instructions Patient Instructions: Acute Bronchitis Discharge ED Provider: Lu Mariano [facility] General Stated complaint: cough lung pain congestion Mode of Arrival: Ambulatory Source of Information: Patient Limitations: No Limitations Time Seen by Provider: 02/27/24 11:41 Description of Symptoms (Recalled from Triage Doc. by RN): PATIENT C/O COUGH, LUNG PAIN AND CONGESTION X 4 DAYS HEENT Symptoms (Recalled from RN notes): Yes Resp Symptoms (Recalled from RN notes): Yes Skin Symptoms (Recalled from RN notes): No MS Symptoms (Recalled from RN notes): No Functional Status (Recalled from RN notes): WNL History of Present Illness Provider Complaint: Pt reports that for the last 4 days she has had a strong cough and now she is started to cough up green mucous. She states that she has had some sneezing, but no real sinus drainage. She denies fever. Related Data Previous Rx's Medication Instructions Recorded levonorgestrel-ethinyl estradiol 1 tab PO DAILY #84 tabs 02/25/24 0.1 mg-20 mcg tablet (Aviane) azithromycin 250 mg tablet See Rx Instructions PO .COMPLEX #6 02/27/24 tabs guaifenesin 200 mg tablet 200 mg PO Q4H PRN cough #60 tabs 02/27/24 Allergies Allergy/AdvReac Type Severity Reaction Status Date / Time ethinyl estradiol Allergy Severe Vomiting Verified 02/11/24 10:51 [From Lo Loestrin Fe] ferrous fumarate Allergy Severe Vomiting Verified 02/11/24 10:51 [From Lo Loestrin Fe] norethindrone acetate Allergy Severe Vomiting Verified 02/11/24 10:51 [From Lo Loestrin Fe] Worker's Comp Is this a Worker's Comp case?: No [facility] Disclaimer: The information contained in this section may have been updated after the patient was seen, as this information can be updated by other users. Medical History (Updated 02/27/24 @ 11:47 by Lu Mariano APRN) Irregular periods Surgical History History of tonsillectomy Family History (Updated 02/11/24 @ 10:55 by Elke Dorman) Other No significant family history Social History Smoking Status: Never smoker alcohol intake: never current occupational status: other Travel in the last 8 weeks: None ROS Obtained: Yes All systems reviewed & no additional complaints except as documented Constitutional Constitutional: Reports system reviewed and no additional complaints, except as documented Eyes Eyes: Reports system reviewed and no additional complaints, except as documented ENT Ears, Nose, Mouth, and Throat: Reports system reviewed and no additional complaints, except as documented Cardiovascular Cardiovascular: Reports system reviewed and no additional complaints, except as documented Respiratory Respiratory: Reports system reviewed and no additional complaints, except as documented, Reports change in phlegm color, Reports chest congestion and Reports cough Gastrointestinal Gastrointestingal: Reports system reviewed and no additional complaints, except as documented Genitourinary Female Genitourinary: Reports system reviewed and no additional complaints, except as documented Musculoskeletal Musculoskeletal: Reports system reviewed and no additional complaints, except as documented Integumentary/Breasts Skin/Breast: Reports system reviewed and no additional complaints, except as documented Neurologic Neurologic: Reports system reviewed and no additional complaints, except as documented Endocrine Endocrine: Reports system reviewed and no additional complaints, except as documented Hematologic/Lymphatic Henatologic/Lymphatic: Reports system reviewed and no additional complaints, except as documented Allergic/Immunologic Allergic/Immunologic: Reports system reviewed and no additional complaints, exc ept as documented Physical Exam General General appearance: alert and in no apparent distress Head Head exam: atraumatic and normocephalic Eye Eye exam: Present normal appearance ENT ENT exam: Present normal exam, normal oropharynx and mucous membranes moist Neck Neck exam: Present normal inspection; Absent lymphadenopathy Chest Chest inspection: Present normal inspection and symmetric chest wall rise Respiratory Respiratory exam: Present other (course sounds at bases) Cardiovascular Cardiovascular exam: Present regular rate, normal rhythm and normal heart sounds Abdominal Exam Abdominal exam: Present soft and normal bowel sounds Extremities Exam Extremities exam: Present normal inspection Back Exam Back exam: Present normal inspection Neurological Exam Neurological exam: Present alert and oriented X3 Psychiatric Psychiatric exam: Present normal affect and normal mood Skin Skin exam: Present warm, dry and intact Lymphatic Lymphatic Findings: no adenopathy Medical Decision Making Pablo Inquiry Pt receiving controlled substance: No Pablo was queried for this patient: No Vital Signs: 02/27/24 11:30 Temperature 98.9 F Temperature Source Oral Pulse Rate [Left Brachial] 80 Respiratory Rate 20 Blood Pressure [Left Arm] 129/93 H Blood Pressure Mean [Left Arm] 105 Blood Pressure Source [Left Arm] Automatic Cuff Blood Pressure Position [Left Arm] Sitting 02 Sat by Pulse Oximetry 99 Oxygen Delivery Method Room Air
[2024-02-27 11:50] VITALS: BP 129/93; PULSE 80; RESP 20; TEMP 37.2; O2SAT 99
== END 2024-02-27 11:54 | disposition home or self-care (01) ==
PROVIDERS: Emergency Provider Nurse Practitioner Family; PCP Nurse Practitioner Family
DX: J20.9 Acute bronchitis, unspecified (principal)
CPT/HCPCS: 99212; 99214; G0463

== ENCOUNTER 2024-04-30 15:39 | Emergency (ER) | payer BC, SELFPAY ==
[2024-04-30 16:00] VITALS: BP 135/76; PULSE 85; RESP 18; TEMP 37.2; O2SAT 98; BMI 29.7
--- NOTE | 2024-04-30 16:22 | ED_ITS ---
Discharge Plan Disposition Patient Disposition: Home, Self-Care Condition: Good Prescriptions Prescriptions: New benzonatate 100 mg capsule 100 mg PO TID PRN (Reason: cough) Qty: 30 0RF methylprednisolone [Medrol (Paul)] 4 mg tablets,dose pack See Rx Instructions .Route .COMPLEX 6 Days Qty: 21 0RF Rx Instructions: taper pack; amoxicillin-pot clavulanate 875-125 mg Tablet 1 tab PO Q12H Qty: 20 0RF No Action levonorgestrel-ethinyl estrad [Falmina (28)] 0.1-20 mg-mcg tablet 1 tab PO DAILY Patient Comments: TAKE ONE TABLET BY MOUTH EVERY DAY Referrals Follow up/Referrals: Marlene Padilla APRN [Primary Care Provider] - See instructions Activity Restrictions/Add. Instructions Additional Instructions/Restrictions: *Monitor Temp, Over the counter Motrin or Tylenol as directed/as needed Tylenol every 4 hours and Motrin every 6 hours (as long as your family doctor has told you that you can take it) for fever or pain. and straight to ER if unable to lower temp less than 101.0 after medication given *Warm salt water gargles may help to soothe the throat *Throat Lozenges? *Warm fluids like tea with honey may help to soothe the throat? *Sleep elevated *Humidifier/Vaporizer Take medication as prescribed Follow up IMMEDIATELY for new or worsening symptoms or no Noticeable improvement over the next 48-72 hours. 911 for difficulty breathing or swallowin g Clinical Impressions Clinical Impression: Sinusitis Instructions Patient Instructions: DI for Sinusitis, Sinusitis Print Language Print Language: Czech Discharge ED Provider: Mary Jo Plunkett [facility] [place] General Stated complaint: congestion runny nose sinus pressure chills Mode of Arrival: Ambulatory Source of Information: Patient Limitations: No Limitations Time Seen by Provider: 04/30/24 16:22 Description of Symptoms (Recalled from Triage Doc. by RN): PATIENT C/O CONGESTION, RUNNY NOSE, AND SINUS PRESSURE SINCE YESTERDAY HEENT Symptoms (Recalled from RN notes): Yes Resp Symptoms (Recalled from RN notes): No Skin Symptoms (Recalled from RN notes): No MS Symptoms (Recalled from RN notes): No Functional Status (Recalled from RN notes): WNL History of Present Illness Provider Complaint: Patient states she has been sick for a couple of weeks and yesterday her sinus pressure got worse, states feels like she has a sinus infection Having pain and pressure behind her eyes, pain and pressure in her ears and headache so she came in to get checked Related Data Home Medications ?Medication ?Instructions ?Recorded ?Confirmed levonorgestrel-ethinyl estradiol 1 tab PO DAILY 04/30/24 04/30/24 0.1 mg-20 mcg tablet (Falmina (28)) Previous Rx's ?Medication ?Instructions ?Recorded amoxicillin 875 mg-potassium 1 tab PO Q12H #20 tabs 04/30/24 clavulanate 125 mg tablet benzonatate 100 mg capsule 100 mg PO TID PRN cough #30 caps 04/30/24 methylprednisolone 4 mg tablets in See Rx Instructions .Route 04/30/24 a dose pack (Medrol (Paul)) .COMPLEX 6 days #21 tabs Allergies Allergy/AdvReac Type Severity Reaction Status Date / Time ethinyl estradiol Allergy Severe Vomiting Verified 02/11/24 10:51 [From Lo Loestrin Fe] ferrous fumarate Allergy Severe Vomiting Verified 02/11/24 10:51 [From Lo Loestrin Fe] norethindrone acetate Allergy Severe Vomiting Verified 02/11/24 10:51 [From Lo Loestrin Fe] Worker's Comp Is this a Worker's Comp case?: No [facility] Disclaimer: The information contained in this section may have been updated after the patient was seen, as this information can be updated by other users. Medical History (Updated 04/30/24 @ 16:26 by Mary Jo Plunkett APRN) Irregular periods Surgical History History of tonsillectomy Family History (Updated 02/11/24 @ 10:55 by JOSE L Lopez) Other No significant family history Social History Smoking Status: Never smoker alcohol intake: never current occupational status: other Travel in the last 8 weeks: None ROS Obtained: Yes All systems reviewed & no additional complaints except as documented and Yes Systems reviewed as appropriate & no additional complaints except as documented Constitutional Constitutional: Reports system reviewed and no additional complaints, except as documented, Reports as per HPI and Reports headache(s) ENT Ears, Nose, Mouth, and Throat: Reports system reviewed and no additional complaints, except as documented, Reports as per HPI, Reports otalgia, Reports headache(s), Reports sinus pain and Reports sinus pressure Cardiovascular Cardiovascular: Reports system reviewed and no additional complaints, except as documented and Reports as per HPI Respiratory Respiratory: Reports system reviewed and no additional complaints, except as documented and Reports as per HPI Gastrointestinal Gastrointestingal: Reports system reviewed and no additional complaints, except as documented and as per HPI Neurologic Neurologic: Reports headache(s) Physical Exam General General appearance: alert and in no apparent distress ENT ENT exam: Present mucous membranes moist Expanded ENT Exam TM/Canal exam: Bilateral TM: bulging Nose exam: Present sinus tenderness Throat exam: Present other (Pharyngeal erythema noted with PND) Respiratory Respiratory exam: Present normal lung sounds bilaterally; Absent respiratory distress or wheezes Cardiovascular Cardiovascular exam: Present regular rate, normal rhythm and normal heart sounds Neurological Exam Neurological exam: Present alert, oriented X3 and normal gait Medical Decision Making Pablo Inquiry Pt receiving controlled substance: No Pablo was queried for this patient: No Vital Signs: 04/30/24 16:00 Temperature 99.0 F Temperature Source Oral Pulse Rate [Left Brachial] 85 Respiratory Rate 18 Blood Pressure [Left Arm] 135/76 Blood Pressure Mean [Left Arm] 95 Blood Pressure Source [Left Arm] Automatic Cuff Blood Pressure Position [Left Arm] Sitting 02 Sat by Pulse Oximetry 98 Oxygen Delivery Method Room Air Medical Decision Narrative: Denies
[2024-04-30 16:27] VITALS: BP 135/76; PULSE 85; RESP 18; TEMP 37.2; O2SAT 98
== END 2024-04-30 16:29 | disposition home or self-care (01) ==
PROVIDERS: Emergency Provider Nurse Practitioner; PCP Nurse Practitioner Family
DX: J01.90 Acute sinusitis, unspecified (principal); R51.9 Headache, unspecified; H92.03 Otalgia, bilateral
CPT/HCPCS: 99212; 99214; G0463

== ENCOUNTER 2024-06-23 08:00 | Emergency (ER) | payer BC, SELFPAY ==
[2024-06-23 08:20] VITALS: BP 130/74; PULSE 89; RESP 19; TEMP 37.2; O2SAT 95; BMI 30.8
--- NOTE | 2024-06-23 08:26 | ED_ITS ---
Discharge Plan Disposition Patient Disposition: Home, Self-Care Condition: Good Prescriptions Prescriptions: New azithromycin [Zithromax] 250 mg tablet 250 mg PO UD DOSE PK Qty: 6 0RF Rx Instructions: Take two (2) tablets today, then one (1) tablet days #2 thru #5 methylprednisolone 4 mg Tablets,Dose Pack 4 mg PO DIRECTED 6 Days Qty: 21 0RF Rx Instructions: Take 1 pack as directed for 6 days inelnjkdtzcvfaf-ftjnsargy-BU [Bromfed DM] 2-30-10 mg/5 mL Syrup 5 ml PO Q6H PRN (Reason: Cough) Qty: 240 0RF No Action levonorgestrel-ethinyl estrad [Falmina (28)] 0.1-20 mg-mcg tablet 1 tab PO DAILY Qty: 84 4RF buspirone 5 mg tablet 5 mg PO DAILY Referrals Follow up/Referrals: Marlene Padilla APRN [Primary Care Provider] - See instructions Activity Restrictions/Add. Instructions Additional Instructions/Restrictions: Drink plenty of fluids. Take tylenol or ibuprofen for pain or fever. Take the medications as directed. Follow up with your regular doctor. GO TO THE ER FOR ANY WORSENING SYMPTOMS Clinical Impressions Clinical Impression: Pharyngitis, Viral syndrome Stand Alone Forms Stand Alone Forms: Work/School Release Instructions Patient Instructions: Sore Throat, DI for Pharyngitis/Tonsillopharyngitis -- Adult Print Language Print Language: Arabic Discharge ED Provider: Sergio Frausto [facility] General Stated complaint: bi lateral ear pain, sore throat, body aches, head Time Seen by Provider: 06/23/24 08:26 Related Data Home Medications ?Medication ?Instructions ?Recorded ?Confirmed buspirone 5 mg tablet 5 mg PO DAILY 06/23/24 06/23/24 Previous Rx's ?Medication ?Instructions ?Recorded levonorgestrel-ethinyl estradiol 1 tab PO DAILY #84 tabs 05/08/24 0.1 mg-20 mcg tablet (Falmina (28)) azithromycin 250 mg tablet 250 mg PO UD DOSE PK #6 tabs 06/23/24 (Zithromax) stmvfzbzyirdmcm-cjloyvwnbxyqgtp-HD 5 ml PO Q6H PRN Cough #240 mL 06/23/24 2 mg-30 mg-10 mg/5 mL oral syrup (Bromfed DM) methylprednisolone 4 mg tablets in 4 mg PO DIRECTED 6 days #21 tabs 06/23/24 a dose pack Allergies Allergy/AdvReac Type Severity Reaction Status Date / Time ethinyl estradiol Allergy Severe Vomiting Verified 05/08/24 15:11 [From Lo Loestrin Fe] ferrous fumarate Allergy Severe Vomiting Verified 05/08/24 15:11 [From Lo Loestrin Fe] norethindrone acetate Allergy Severe Vomiting Verified 05/08/24 15:11 [From Lo Loestrin Fe] [facility] Disclaimer: The information contained in this section may have been updated after the patient was seen, as this information can be updated by other users. Medical History Irregular periods Surgical History History of tonsillectomy Family History Other No significant family history Social History Smoking Status: Never smoker alcohol intake: never current occupational status: other Travel in the last 8 weeks: None ROS Obtained: Yes All systems reviewed & no additional complaints except as documented Constitutional Constitutional: Reports chills and Reports fever(s) Eyes Eyes: Denies eye discharge ENT Ears, Nose, Mouth, and Throat: Reports as per HPI Cardiovascular Cardiovascular: Denies chest pain Respiratory Respiratory: Denies chest congestion and Reports cough Gastrointestinal Gastrointestingal: Reports nausea; Denies abdominal pain, constipation, cramping, diarrhea or vomiting Musculoskeletal Musculoskeletal: Denies arthralgias Integumentary/Breasts Skin/Breast: Denies rash Neurologic Neurologic: Denies paresthesias Physical Exam General General appearance: alert and in no apparent distress Head Head exam: atraumatic, normocephalic and normal inspection Eye Eye exam: Present normal appearance, PERRL and EOMI ENT ENT exam: Present mucous membranes moist and normal external ear exam Expanded ENT Exam TM/Canal exam: Bilateral TM: erythema and bulging Nose exam: Absent sinus tenderness Mouth exam: Present normal external inspection; Absent drooling Teeth exam: Present normal inspection Throat exam: Present tonsillar erythema, tonsillomegaly and tonsillar exudate Neck Neck exam: Present normal inspection, full ROM and trachea midline; Absent tenderness, meningismus or lymphadenopathy Chest Chest inspection: Present normal inspection and symmetric chest wall rise; Absent tenderness Respiratory Respiratory exam: Present normal lung sounds bilaterally; Absent respiratory distress, wheezes, stridor or accessory muscle use Cardiovascular Cardiovascular exam: Present regular rate and normal rhythm; Absent systolic murmur or diastolic murmur Abdominal Exam Abdominal exam: Present soft and normal bowel sounds; Absent distention, tenderness, guarding, rebound or rigidity Extremities Exam Extremities exam: Present normal inspection and normal capillary refill; Absent calf tenderness Back Exam Back exam: Present normal inspection and full ROM; Absent tenderness, CVA ten derness (R) or CVA tenderness (L) Neurological Exam Neurological exam: Present alert, oriented X3 and CN II-XII intact Psychiatric Psychiatric exam: Present normal affect and normal mood Skin Skin exam: Present warm, dry, intact and normal color Medical Decision Making Medical Records Medical records reviewed: No I reviewed the patient's medical records. Screening: Per USPSTF and CDC recommendations, given the prevalence of disease in our region, it is our hospital?s policy to screen for HIV and viral Hepatitis for all patients aged 18 and over and those with ongoing risk factors. Pablo Inquiry Pt receiving controlled substance: No Lab Data Lab results reviewed: Yes I reviewed the patient's lab results.
[2024-06-23 08:39] LABS: UTC Strep Screen (Rapid) Negative (Negative)
[2024-06-23 08:47] LABS: UTC Influenza A Antigen Negative (Negative); UTC Influenza B Antigen Negative (Negative)
[2024-06-23 08:49] VITALS: BP 130/74; PULSE 89; RESP 19; TEMP 37.2; O2SAT 95
== END 2024-06-23 08:51 | disposition home or self-care (01) ==
PROVIDERS: Emergency Provider Nurse Practitioner Family; PCP Nurse Practitioner Family
DX: J02.9 Acute pharyngitis, unspecified (principal); B34.9 Viral infection, unspecified
CPT/HCPCS: 87635; 87804; 87880; 99213; G0381